=== PATIENT | male | born 1965 | race Hispanic/Latino ===

== ENCOUNTER 2017-10-20 18:49 | Emergency (ER) | payer MEDICARE ==
[2017-10-20 19:45] VITALS: BP 121/78
[2017-10-20 20:44] LABS: Basophils % (Auto) 0.6 % (0.0-1.8); Eosinophils # (Auto) 0.1 K/mm3 (0.0-0.4); Eosinophils % (Auto) 1.8 % (0.0-4.3); Hematocrit 42.2 % (35.5-45.6); Hemoglobin 14.3 gm/dl (11.8-15.2); Lymphocytes # (Auto) 1.4 K/mm3 (1.2-5.4); Lymphocytes % (Auto) 22.4 % (13.4-35.0); Mean Corpuscular HGB Conc 34 % (32-34); Mean Corpuscular Hemoglobin 31 pg (28-32); Mean Corpuscular Volume 91 fl (84-94); Monocytes # (Auto) 0.6 K/mm3 (0.0-0.8); Monocytes % (Auto) 9.6 % (0.0-7.3); Platelet Count 238 K/mm3 (140-440); Red Blood Count 4.64 M/mm3 (3.65-5.03); Red Cell Distribution Width 14.3 % (13.2-15.2)
[2017-10-20 20:55] LABS: Blood Urea Nitrogen 10 mg/dL (9-20)
[2017-10-20 20:58] LABS: INR 1.89 (0.87-1.13)
[2017-10-20 20:59] LABS: Partial Thromboplastin Time 45.7 Sec. (24.2-36.6)
[2017-10-20 21:04] LABS: BUN/Creatinine Ratio 11; Calcium 9.1 mg/dL (8.4-10.2); Hemolysis Index 13
[2017-10-20 22:18] LABS: Bacteria,Urine 1+ /HPF (Negative); Bilirubin,Urine NEG (Negative); Blood,Urine MOD (Negative); Color,Urine Yellow (Yellow); Mucus,Urine FEW /HPF; Protein,Urine <15 mg/dL mg/dL (Negative)
[2017-10-20 22:25] LABS: Benzodiazepines Screen,Urine PRESUMPTIVE NEGATIVE; Methadone Screen,Urine PRESUMPTIVE NEGATIVE; Opiate Screen,Urine PRESUMPTIVE NEGATIVE
[2017-10-20 22:41] LABS: Amphetamine Screen,Urine PRESUMPTIVE POSITIVE; Cannabinoid Screen,Urine PRESUMPTIVE POSITIVE; Cocaine Screen,Urine PRESUMPTIVE POSITIVE
--- NOTE | 2017-10-20 23:31 | Emergency Department Report ---
ED Medical Clearance HPI - General Chief complaint: Psych Stated complaint: MEDICAL CLEARANCE Time Seen by Provider: 10/20/17 23:26 Source: patient Mode of arrival: Ambulatory - History of Present Illness Initial comments: 51-year-old male comes in to have his Coumadin checks that he is able to enter into [facility]. Patient reports that he is on Coumadin 7.5 mg on Wednesday and takes 5 mg daily. Patient reports that he did take his Coumadin of 7.5 today. Patient is on Coumadin secondary to her artificial valve replacement 2. Patient denies any chest pain no shortness of breathing no bruising. Patient denies any other concerns at this time. Allergies/Adverse reactions: Allergies Allergy/AdvReac Type Severity Reaction Status Date / Time haloperidol [From Haldol] Allergy Seizure Verified 10/20/17 19:45 ED Review of Systems ROS: Stated complaint: MEDICAL CLEARANCE Other details as noted in HPI Comment: All other systems reviewed and negative ED Past Medical Hx - Past Medical History Hx Hypertension: Yes Hx Psychiatric Treatment: Yes (Bipolar) Additional medical history: pt states he has two heart valves - Social History Smoking Status: Current Every Day Smoker ED Physical Exam - General Limitations: No Limitations General appearance: alert, in no apparent distress, other (patient smells of alcohol.) - Head Head exam: Present: atraumatic, normocephalic - ENT ENT exam: Present: mucous membranes moist - Respiratory Respiratory exam: Present: normal lung sounds bilaterally. Absent: respiratory distress - Cardiovascular Cardiovascular Exam: Present: regular rate, normal rhythm. Absent: systolic murmur, diastolic murmur, rubs, gallop - Extremities Exam Extremities exam: Present: normal inspection, full ROM - Neurological Exam Neurological exam: Present: alert, oriented X3 - Psychiatric Psychiatric exam: Present: agitated - Skin Skin exam: Present: warm, dry, intact, normal color. Absent: rash ED Course Vital Signs 10/20/17 19:41 Temperature 98 F Pulse Rate 117 H Blood Pressure 121/78 ED Medical Decision Making - Lab Data Result diagrams: 10/20/17 20:24 10/20/17 20:24 - Medical Decision Making Patient has been evaluated but this provider fast track. Patient is here for medical clearance to check his Coumadin level prior to entering to [facility]. Patient has artificial valve replacement just Coumadin level should be between 2.5 and 3.5. Patient Coumadin level today was 1.89. Patient reports these taken Coumadin 7.5 mg today. Discussed the patient to double his dose of Coumadin tomorrow times one day and then continue with 5 mg daily as been prescribed by his primary provider. Patient has verbalized understanding. ED Disposition Clinical Impression: Medical clearance for psychiatric admission, Anticoagulation goal of INR 2.5 to 3.5 Disposition: - TO HOME OR SELFCARE Is pt being admited?: No Does the pt Need Aspirin: No Condition: Stable Additional Instructions: Please take 10 mg of Coumadin tomorrow and then continue with Coumadin 5 mg daily with your regular schedule 7.5 mg once a week. I encouraged she did recheck her Coumadin level in 3 days to check to see if it's on a level between 2.5 and 3.5. Patient is cleared to enter into [facility]. Patient will need to have his INR checked in 3 days. Referrals: PRIMARY CARE, [Primary Care Provider] - 3-5 Days
== END 2017-10-20 23:45 | disposition home or self-care (01) ==
LOC: ED 18:49
DX: Z00.8 Encounter for other general examination (principal); F31.9 Bipolar disorder, unspecified; I10 Essential (primary) hypertension; F17.200 Nicotine dependence, unspecified, uncomplicated; Z88.8 Allergy status to other drugs, medicaments and biological substances; Z79.899 Other long term (current) drug therapy
CPT/HCPCS: 36415; 80048; 80307; 81001; 85025; 85610; 85730; 99283; G0480; 80320